=== PATIENT | female | born 1970 | race Caucasian/White ===

== ENCOUNTER 2016-06-18 18:33 | Inpatient (IN) | payer OTHER ==
--- NOTE | ~2016-06-18 | PN ---
Unit #: [id number] #: [id number] Patient: JOSE KELLOGG [id number] [facility] [address] [place] [address] [id number] MR#: [id number] NAME: JOSE KELLOGG ROOM: 66 Age: 45 Sex: F Admission Date: 06/18/2016 : 1970 Attending Physician: Ammon Ruiz M.D. Admitting Physician: Ammon Ruiz M.D. Primary Care Physician: Kusum Segundo PROGRESS NOTES DATE 06/22/2016 DISCUSSION The patient continues to endorse positive suicidal ideation and depressed mood. I have spoken with the patient today regarding realistic expectations of inpatient care as well as latency of onset of her antidepressant medication. She is continuing however to endorse positive suicidal ideation (1)____ ongoing inpatient treatment. Dictated by... Ammon Ruiz M.D. CB/amara TD: 06/23/2016 01:43 JOB #: [id number] [facility] PROGRESS NOTES Page 1 of 1 X Ammon Ruiz MD X PROGRESS NOTE
--- NOTE | ~2016-06-18 | PN ---
Unit #: [id number] #: [id number] Patient: JOSE KELLOGG [id number] [facility] [address] [place] [address] [id number] MR#: [id number] NAME: JOSE KELLOGG ROOM: [facility] Age: 45 Sex: F Admission Date: 06/18/2016 : 1970 Attending Physician: Ammon Ruiz M.D. Admitting Physician: Ammon Ruiz M.D. Primary Care Physician: Kusum Segundo PROGRESS NOTES DATE 06/28/2016 DISCUSSION The patient has tolerated initiation of Abilify without complaints. She remains quite dysphoric but is less seclusive to room. She continues to endorse positive suicidal ideation with a plan to overdose or cut her wrist. She remains on suicidal precautions. Dictated by... Ammon Ruiz M.D. CB/amara TD: 06/29/2016 01:47 JOB #: [id number] [facility] PROGRESS NOTES Page 1 of 1 X Ammon Ruiz MD X PROGRESS NOTE
--- NOTE | ~2016-06-18 | PN ---
Unit #: [id number] #: [id number] Patient: JOSE KELLOGG [id number] [facility] [address] [place] [address] [id number] MR#: [id number] NAME: JOSE KELLOGG ROOM: 66 Age: 45 Sex: F Admission Date: 06/18/2016 : 1970 Attending Physician: Ammon Ruiz M.D. Admitting Physician: Ammon Ruiz M.D. Primary Care Physician: Kusum Segundo PROGRESS NOTES DATE 06/25/2016 DISCUSSION The patient states today that she continues to experience positive suicidal thinking. She is angry today that her large portions have not been provided and states that this is an example of how "I make little things into big things." This is actually quite insightful for the patient and is a sign of some progress. She does, however, continue to endorse positive suicidal ideation and states that she is unsafe outside the hospital at this point. Dictated by... Ammon Ruiz M.D. CB/siddhartha TD: 06/25/2016 13:15 JOB #: [id number] [facility] PROGRESS NOTES Page 1 of 1 X Ammon Ruiz MD X PROGRESS NOTE
--- NOTE | ~2016-06-18 | PN ---
Unit #: [id number] #: [id number] Patient: JOSE KELLOGG [id number] [facility] [address] [place] [address] [id number] I MR#: [id number] NAME: JOSE KELLOGG ROOM: 66 Age: 45 Sex: F Admission Date: 06/18/2016 : 1970 Attending Physician: Ammon Ruiz M.D. Admitting Physician: Ammon Ruiz M.D. Primary Care Physician: Kusum Segundo PROGRESS NOTES DATE 06/23/2016 DISCUSSION The patient continues to complain of dysphoric mood and suicidal ideation, but she states she is doing "a little better." I have spoken today with the patient regarding realistic expectations of inpatient care, and I have also spoken with her regarding possible participation in the intensive outpatient program on his discharge. Dictated by... Ammon Ruiz M.D. CB/bzg TD: 06/23/2016 12:41 JOB #: [id number] [facility] PROGRESS NOTES Page 1 of 1 X Ammon Ruiz MD X PROGRESS NOTE
--- NOTE | ~2016-06-18 | HP ---
Unit #: [id number] #: [id number] Patient: JOSE KELLOGG [id number] [place] [address] [id number] I MR#: [id number] NAME: JOSE KELLOGG ROOM: P266 Age: 45 Sex: F Admission Date: 06/18/2016 : 1970 Attending Physician: Ammon Ruiz M.D. Admitting Physician: Ammon Ruiz M.D. Primary Care Physician: David Tran M.D. HISTORY AND PHYSICAL HISTORY OF PRESENT ILLNESS Jose is a 45-year-old female admitted on 06/18/[address] [place] [address] for suicidal ideation, depression, and anxiety. PAST MEDICAL HISTORY Asthma and COPD, history of herpes, fibromyalgia, obesity, GERD, history of migraines, degenerative disk disease. PAST SURGICAL HISTORY History of cholecystectomy and right foot bunionectomy. SOCIAL HISTORY Smokes less than half pack of cigarettes daily. Denies alcohol or illegal drug use. She is currently single and living with her mother and her boyfriend. FAMILY HISTORY Noncontributory. REVIEW OF SYSTEMS CONSTITUTIONAL: No fever or chills. HEENT: Denies any sore throat, ear pain or runny nose. CARDIOVASCULAR: Denies chest pain, irregular heart rhythm or palpitations. CHEST: Denies shortness of breath or cough. No hemoptysis. GASTROINTESTINAL: Denies nausea, vomiting, diarrhea or chronic constipation. ENDOCRINE: Denies history of increased thirst or urination. No recent significant weight loss or gain. GENITOURINARY: Denies dysuria, frequency, or hematuria. SKIN: Denies any rashes. HEMATOLOGIC: Denies history of increased bleeding or bruising. MUSCULOSKELETAL: Denies any hot, swollen joints. No generalized muscle pain. NEUROLOGIC: Denies problems with vision or speech. No frequent, severe headaches. No numbness, tingling or weakness in any extremities. Denies loss of bladder or bowel control. CURRENT MEDICATIONS Valtrex, Flexeril, Imitrex, Lortab, Minipress, Flonase, Tessalon Pearls, Protonix, Ambien, and Proventil. ALLERGIES To dairy, penicillin, amoxicillin, BuSpar, codeine, Haldol, Paxil, Lyrica, Unit #: [id number] #: [id number] Patient: JOSE KELLOGG Seroquel, Zoloft, Geodon, shell fish, and trazodone. PHYSICAL EXAMINATION GENERAL: Alert, oriented, no acute distress. VITAL SIGNS: Blood pressure 131/88, heart rate 74, respirations 20, and temperature 97.9. HEIGHT: 5 feet 4. WEIGHT: 240 pounds. SKIN: Warm, dry. No rashes or lesions, track diehl, cuts, etc. HEENT: Normocephalic. TMs not viewed. Oronasal passages clear. Conjunctivae clear. PERRLA. EOM is intact. NECK: No lymphadenopathy or thyromegaly. HEART: Regular rate and rhythm. No murmur, gallop, or rub. LUNGS: Clear to auscultation bilaterally. ABDOMEN: Soft, nontender without palpable masses or hepatosplenomegaly. : Not assessed. EXTREMITIES: No evidence of cyanosis, clubbing, or edema. Moves all extremities independently without obvious deficit. NEUROLOGICAL: Grossly within normal limits. Cranial Nerves: II: Visual hankins are intact. III, IV AND : Extraocular movements are intact. Pupils are equal, round and reactive to light. V: Facial sensation is grossly normal. VII: Facial movements and expression are normal. VIII: Auditory acuity grossly intact. IX, X: Uvula is midline. Phonation is normal. XI: Patient shrugs shoulders and turns head normally. XII: Tongue protrudes in the midline. Sensory and Motor Function: Sensory and motor sensation is grossly normal. Motor: moves all extremities well. Coordination: Gait is normal. Deep Tendon Reflexes: Intact. IMPRESSION 1. Psychiatric admission. 2. Obesity. 3. Fibromyalgia. 4. Chronic obstructive pulmonary disease. 5. Gastroesophageal reflux disease. 6. History of migraines. 7. Degenerative disk disease. 8. History of herpes. RECOMMENDATIONS PSYCHIATRIC: Per psychiatrist. MEDICAL: No contraindication to participate in this facility's activities. MEDICAL PROGNOSIS Good. MEDICAL CONDITION Stable. Dictated by... Wilfredo Campbell Unit #: [id number] #: [id number] Patient: JOSE KELLOGG TD: 06/20/2016 06:49 JOB #: [id number] HISTORY AND PHYSICAL Page 1 of 1 X ANGIE FINN APRN X HISTORY AND PHYSICAL
--- NOTE | ~2016-06-18 | PN ---
Unit #: [id number] #: [id number] Patient: JOSE KELLOGG [id number] [facility] [address] [place] [address] [id number] I MR#: [id number] NAME: JOSE KELLOGG ROOM: 66 Age: 45 Sex: F Admission Date: 06/18/2016 : 1970 Attending Physician: Ammon Ruiz M.D. Admitting Physician: Ammon Ruiz M.D. Primary Care Physician: Kusum Segundo PROGRESS NOTES DATE 06/21/2016 DISCUSSION The patient continues to complain of dysphoric mood, and positive suicidal ideation. She is acting within the therapeutic milieu and compliant with medications and langley routine. We continue current treatment. Dictated by... Ammon Ruiz M.D. CB/shanique TD: 06/22/2016 07:21 JOB #: [id number] [facility] PROGRESS NOTES Page 1 of 1 X Ammon Ruiz MD X PROGRESS NOTE
--- NOTE | ~2016-06-18 | DS ---
Unit #: [id number] #: [id number] Patient: JOSE KELLOGG [id number] [place] [address] [id number] MR#: [id number] NAME: JOSE KELLOGG ROOM: P256 Age: 45 Sex: F Admission Date: 06/18/2016 : 1970 Discharge Date: 07/03/2016 Attending Physician: Ammon Ruiz M.D. Primary Care Physician: David Tran M.D. DISCHARGE SUMMARY REASON FOR ADMISSION The patient is a 45-year-old white female, admitted with worsening depression and suicidal ideation. HOSPITAL COURSE The patient was admitted to the [facility] unit, placed on suicide precautions. The patient had in the past done well with medication washout. However with recurrence of depression and psychotic symptoms as well as severe anxiety, it was the feeling of this physician that re-initiation of conservative pharmacotherapy would be warranted and the patient was however firmly confronted regarding her failure in the past to comply with prescribed outpatient treatment and the importance of this was stressed to the patient. The patient was begun on Celexa 20 mg daily and restarted on Neurontin 300 mg t.i.d. On 06/27/2016, the patient reported that she was hearing voices and low-dose Abilify 2 mg daily was added. From that point forward, the patient showed slow, but steady improvement. By 07/03/2016, she was denying suicidal ideation. She at least gave [place] approval to a plan with participation in the intensive outpatient program though this physician remains convinced that she will probably not comply with that recommendation. 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 DISPOSITION ON DISCHARGE The patient is discharged on the following medications: Valtrex 500 mg b.i.d. for HSV-2, Flexeril 5 mg b.i.d. for muscle relaxation, Imitrex 50 mg b.i.d. p.r.n. headache, Lortab 10/325 one tablet q.6 hours p.r.n. headache, Minipress 4 mg at bedtime for nightmares, Flonase one spray b.i.d. for environmental allergies, Tessalon Perles 100 mg t.i.d. for cough, Protonix 40 mg daily for GERD, Ambien 10 mg at h.s. p.r.n. insomnia, Proventil HFA one puff daily for shortness of air, Neurontin 300 mg t.i.d. for anxiety, Celexa 20 mg daily for depression, Abilify 2 mg daily for psychosis. DISCHARGE INSTRUCTIONS No dietary or physical restrictions were placed on the patient at the time of discharge. FOLLOWUP As noted previously, it is recommended that the patient is to follow up in Unit #: [id number] #: [id number] Patient: JOSE KELLOGG the intensive outpatient program provided by this facility and through the auspices of critical [facility] mental health resources. PROGNOSIS Considered fair. Dictated by... Ammon Ruiz M.D. CB/david TD: 07/04/2016 03:32 JOB #: [id number] DISCHARGE SUMMARY Page 1 of 1 X Ammon Ruiz MD X DISCHARGE SUMMARY
--- NOTE | ~2016-06-18 | PA ---
Unit #: [id number] #: [id number] Patient: JOSE KELLOGG [id number] [place] [address] [id number] I MR#: [id number] NAME: JOSE KELLOGG ROOM: P266 Age: 45 Sex: F Admission Date: 06/18/2016 : 1970 Date of Assessment: 06/19/2016 Attending Physician: Ammon Ruiz M.D. Admitting Physician: Ammon Ruiz M.D. Primary Care Physician: David Tran M.D. PSYCHIATRIC ASSESSMENT IDENTIFYING INFORMATION The patient is a 45-year-old white female admitted to the [address] [place] [address] Unit reporting recurrent depression, anxiety, and suicidal ideation. CHIEF COMPLAINT None given. INFORMANT(S) Patient, reliability is good. HISTORY OF PRESENT ILLNESS The patient is a 45-year-old white female well known to this physician from multiple previous admissions to this facility. She has admitted reporting increasing depression related to grief over the recent of her nephew's girlfriend from a drug overdose. Because of this, the patient's mother is now raising the 5-month-old child of the decreased woman. This has caused increasing stress. Since her discharge from this facility, the patient has not followed up with an outpatient psychiatrist and is taking only Minipress at this point. She is not on an antidepressant medication. The patient continues to complain of severe anxiety and depression during today's interview and continues to endorse positive suicidal ideation with plan to overdose. For more complete history of present illness, please refer to previously dictated notes. PAST PSYCHIATRIC HISTORY Reviewed, no changes. PAST MEDICAL HISTORY Reviewed, no changes. MEDICATIONS The patient's current medications include Valtrex, Flexeril, Imitrex, Lortab, Minipress, Tessalon Pearls, Protonix, Ambien, Proventil HFA. ALLERGIES Dairy, penicillin, and amoxicillin, BuSpar, codeine, Haldol, Paxil, Lyrica, Seroquel, Zoloft, Geodon, shellfish, and trazodone. FAMILY HISTORY Reviewed, no changes. SOCIAL HISTORY Reviewed, no changes. Unit #: [id number] #: [id number] Patient: JOSE KELLOGG MENTAL STATUS EXAMINATION Examination at this time reveals the patient to be an obese disheveled white female appearing stated age. She is in no apparent physical distress at the time of examination. She is awake, alert, and oriented in all spheres. Her mood is dysphoric, her affect blunted. Speech is generally well-coherent. There are no gross deficits in memory or cognition noted. Intelligence is judged to be in the average range based on fund of knowledge. The patient is cooperative throughout the interview. She continues to endorse positive suicidal ideation during today's interview. She denies homicidal ideation. She denies any psychotic symptoms. Her judgment and insight appear to be intact. ASSETS AND LIABILITIES The patient's assets are to be assessed. Liabilities: Chronicity of illness. DIAGNOSTIC IMPRESSION 1. Major depressive disorder, recurrent, moderate. 2. Dependent personality disorder. 3. HSV. 4. Migraine headache. 5. Gastroesophageal reflux disease. 6. Asthma. TREATMENT PLAN The patient remains hospitalized for safety and stabilization. We will continue previously prescribed medications. I will add Neurontin 300 mg 3 times daily. We will address the patient's anxiety as per her request. She reports this medication has been effective for her in the past. I will also begin the patient on Celexa 20 mg daily in hopes of addressing her depressive symptoms. The importance of consistent compliance with outpatient followup is discussed with the patient certainly today. ESTIMATED LENGTH OF STAY 7 to 10 days. Dictated by... Ammon Ruiz M.D. Ramone TD: 06/19/2016 12:47 JOB #: [id number] PSYCHIATRIC ASSESSMENT Page 1 of 1 X Ammon Ruiz MD X PSYCHIATRIC ASSESSMENT
--- NOTE | ~2016-06-18 | PN ---
Unit #: [id number] #: [id number] Patient: JOSE KELLOGG [id number] [facility] [address] [place] [address] [id number] MR#: [id number] NAME: JOSE KELLOGG ROOM: 66 Age: 45 Sex: F Admission Date: 06/18/2016 : 1970 Attending Physician: Ammon Ruiz M.D. Admitting Physician: Ammon Ruiz M.D. Primary Care Physician: Kusum Segundo PROGRESS NOTES DATE 06/27/2016 DISCUSSION The patient remains dysphoric and flat. She is now reporting positive auditory hallucinations. We will add Abilify 2 mg daily in hopes of addressing the patient's psychotic symptoms and in hopes of augmenting her prescribed antidepressant medication. Dictated by... Ammon Ruiz M.D. CB/ravi TD: 06/27/2016 11:52 JOB #: [id number] [facility] PROGRESS NOTES Page 1 of 1 X Ammon Ruiz MD X PROGRESS NOTE
--- NOTE | ~2016-06-18 | PN ---
Unit #: [id number] #: [id number] Patient: JOSE KELLOGG [id number] [facility] [address] [place] [address] [id number] MR#: [id number] NAME: JOSE KELLOGG ROOM: 66 Age: 45 Sex: F Admission Date: 06/18/2016 : 1970 Attending Physician: Ammon Ruiz M.D. Admitting Physician: Ammon Ruiz M.D. Primary Care Physician: Kusum Segundo PROGRESS NOTES DATE 06/26/2016 DISCUSSION The patient appears much more dysphoric today and is reporting significant increase in suicidal thinking with plan to overdose if discharged. At this point, her trial of citalopram is 1 week old and upward titration of that medication would at this point be foolhardy. We must allow the medication have an opportunity to work at its current dose rather than needlessly increasing the dose of medication simply to "feel as though we are doing something." The patient continues active participation in programming, and suicide precautions remain in place. Dictated by... Ammon Ruiz M.D. CB/ravi TD: 06/26/2016 14:36 JOB #: [id number] [facility] PROGRESS NOTES Page 1 of 1 X Ammon Ruiz MD X PROGRESS NOTE
--- NOTE | ~2016-06-18 | PN ---
Unit #: [id number] #: [id number] Patient: JOSE KELLOGG [id number] [facility] [address] [place] [address] [id number] I MR#: [id number] NAME: JOSE KELLOGG ROOM: P256 Age: 45 Sex: F Admission Date: 06/18/2016 : 1970 Attending Physician: Ammon Ruiz M.D. Admitting Physician: Ammon Ruiz M.D. Primary Care Physician: Kusum Segundo PROGRESS NOTES DATE 07/01/2016 DISCUSSION The patient remains dysphoric and flat. She has begun self-mutilatory acts by scratching at herself using her nails. She is starting on VTS precautions, and should this behavior continue I will have to consider room lockout. She continues to endorse positive suicidal ideation. Dictated by... Ammon Ruiz M.D. CB/bzg TD: 07/01/2016 13:07 JOB #: [id number] [facility] PROGRESS NOTES Page 1 of 1 X Ammon Ruiz MD X PROGRESS NOTE
--- NOTE | ~2016-06-18 | PN ---
Unit #: [id number] #: [id number] Patient: JOSE KELLOGG [id number] [facility] [address] [place] [address] [id number] I MR#: [id number] NAME: JOSE KELLOGG ROOM: 66 Age: 45 Sex: F Admission Date: 06/18/2016 : 1970 Attending Physician: Ammon Ruiz M.D. Admitting Physician: Ammon Ruiz M.D. Primary Care Physician: Kusum Segundo PROGRESS NOTES DATE 06/29/2016 DISCUSSION The patient continues to complain of severely depressed mood and poor sleep. We are cautiously restarting medications though it is worth noting that at one point during a bed washout, the patient's condition seem to have improved immeasurably thus, at this point, her medication regimen remains a fairly conservative one. I will order VTS precautions given the patient's complaints of worsening suicidal ideation. Dictated by... Ammon Ruiz M.D. CB/shanique TD: 06/29/2016 13:01 JOB #: [id number] [facility] PROGRESS NOTES Page 1 of 1 X Ammon Ruiz MD X PROGRESS NOTE
--- NOTE | ~2016-06-18 | PN ---
Unit #: [id number] #: [id number] Patient: JOSE KELLOGG [id number] [facility] [address] [place] [address] [id number] MR#: [id number] NAME: JOSE KELLOGG ROOM: 66 Age: 45 Sex: F Admission Date: 06/18/2016 : 1970 Attending Physician: Ammon Ruiz M.D. Admitting Physician: Ammon Ruiz M.D. Primary Care Physician: Kusum Segundo PROGRESS NOTES DATE 06/24/2016 DISCUSSION The patient is confused and remains dysphoric, flat, and continues to endorse positive suicidal ideation. She reports increased anxiety after an event on the unit in which the patient "went off." I have again spoken with the patient regarding realistic expectations of inpatient care and have once again spoken to her encouragingly about potential participation in the intensive outpatient program. Dictated by... Ammon Ruiz M.D. CB/ravi TD: 06/24/2016 12:50 JOB #: [id number] [facility] PROGRESS NOTES Page 1 of 1 X Ammon Ruiz MD X PROGRESS NOTE
--- NOTE | ~2016-06-18 | PN ---
Unit #: [id number] #: [id number] Patient: JOSE KELLOGG [id number] [facility] [address] [place] [address] [id number] I MR#: [id number] NAME: JOSE KELLOGG ROOM: P256 Age: 45 Sex: F Admission Date: 06/18/2016 : 1970 Attending Physician: Ammon Ruiz M.D. Admitting Physician: Ammon Ruiz M.D. Primary Care Physician: Kusum Segundo PROGRESS NOTES DATE 06/30/2016 DISCUSSION The patient is dysphoric today and continuing to complain of poor sleep. I have explained to her that we can really make no further changes with her sleep medication regimen. I have also gently confronted her regarding her failure to attend non-unit activity during today's programming. The patient is apologetic regarding this. She continues to endorse positive suicidal ideation but is beginning to report some future orientation regarding a potential discharge date though in the past the patient has tended to sabotage these with some regularity. Dictated by... Ammon Ruiz M.D. RANDELL/carmella TD: 06/30/2016 15:32 JOB #: [id number] [facility] PROGRESS NOTES Page 1 of 1 X Ammon Ruiz MD X PROGRESS NOTE
--- NOTE | ~2016-06-18 | PN ---
Unit #: [id number] #: [id number] Patient: JOSE KELLOGG [id number] [facility] [address] [place] [address] [id number] I MR#: [id number] NAME: JOSE KELLOGG ROOM: 66 Age: 45 Sex: F Admission Date: 06/18/2016 : 1970 Attending Physician: Ammon Ruiz M.D. Admitting Physician: Ammon Ruiz M.D. Primary Care Physician: Kusum Segundo PROGRESS NOTES DATE 06/20/2016 DISCUSSION The patient remains dysphoric and flat and continues to endorse positive suicidal ideation. She has tolerated re-initiation of citalopram and is actively within the therapeutic milieu. Dictated by... Ammon Ruiz M.D. CB/carmella TD: 06/20/2016 15:49 JOB #: [id number] [facility] PROGRESS NOTES Page 1 of 1 X Ammon Ruiz MD X PROGRESS NOTE
--- NOTE | ~2016-06-18 | PN ---
Unit #: [id number] #: [id number] Patient: JOSE KELLOGG [id number] [facility] [address] [place] [address] [id number] I MR#: [id number] NAME: JOSE KELLOGG ROOM: P256 Age: 45 Sex: F Admission Date: 06/18/2016 : 1970 Attending Physician: Ammon Ruiz M.D. Admitting Physician: Ammon Ruiz M.D. Primary Care Physician: Kusum Segundo PROGRESS NOTES DATE 07/02/2016 DISCUSSION The patient complains of increased anxiety today but does report some reduction in suicidal ideation. I have spoken today with the patient regarding my wish to minimize the aggressivity of her pharmacotherapy given the fact that after previous hospitalization wherein the patient had undergone a med washout, her condition had improved almost immeasurably. I am therefore keeping the patient's medication regimen as conservative as possible, and I have again spoken with the patient regarding the importance of post-discharge psychiatric followup in the intensive outpatient program. Dictated by... Ammon Ruiz M.D. CB/ravi TD: 07/02/2016 14:02 JOB #: [id number] [facility] BOSE NOTES Page 1 of 1 X Ammon Ruiz MD X PROGRESS NOTE
[~2016-06-18 18:33] MED LIST: ACETAMINOPHEN325 MG PO; ADVAIR 2501 DISK W/D PO; AL-MAG HYDROX-S30 M1 PO; AMBIEN10 MG PO; AMBIEN12.5 M1 PO; BENZONATATE PO; EFFEXOR75 M3 PO; FLEXERIL10 M1 PO; FLONASE 0.05% N16 GM; GABAPENTIN400 M2 PO; GABAPENTIN600 MG PO; HYDROCODON-ACE1 EAC5 PO; IMITREX25 MG PO; KLONOPIN0.5 MG PO; LASIX PO; LEXAPRO20 MG PO; LORTAB 10-3251 EACH PO; MILK OF MAGNESIA PO; MINIPRESS PO; MOTRIN600 MG PO; NEURONTIN800 MG PO; NICOTINE P1 PATCH .1 TD; NICOTINE TRANSD21 MG EXT; PANTOPRAZOLE SO40 MG PO; PROPRANOLOL HCL20 MG PO; PROTONIX PO; PROVENTIL0.83 MG/ML INH; RISPERIDONE1 MG PO; TESSALON PERLE100 M1; TYLENOL325 M1 PO; VALTREX500 MG PO; VISTARIL50 MG PO; ZANTAC300 MG PO
[2016-06-19 09:42] LABS: BASOPHIL# 0.1 X10e3 (0-0.3); BASOPHIL% 0.7 % (0-2.5); EOSINOPHIL# 0.5 X10e3 (0-0.7); EOSINOPHIL% 4.2 % (0.0-7.0); HEMATOCRIT 40.9 % (35.0-45.0); HEMOGLOBIN 13.5 gm/dL (12.0-16.0); LYMPHOCYTE# 3.4 X10e3 (1.0-3.5); LYMPHOCYTE% 31.9 % (17.0-45.0); MEAN CELL VOLUME 94.3 FL (83-96); MEAN CORPUSCULAR HEMOGLOBIN 31.1 PG (28-34); MEAN PLATELET VOLUME 9.8 FL (6.5-11.5); MONOCYTE# 0.9 X10e3 (0-1.0); MONOCYTE% 8.5 % (3.0-12.0); NEUTROPHIL# 5.9 X10e3 (1.5-7.1); NEUTROPHIL% 54.7 % (40-75); PLATELET COUNT 305 X10e3 (140-420); RED BLOOD COUNT 4.34 X10e (3.90-5.30); RED CELL DISTRIBUTION WIDTH 13.6 % (11.0-15.5); WHITE BLOOD COUNT 10.8 X10e3 (4.0-10.5)
[2016-06-19 09:44] LABS: DIFF IND NO
[2016-06-19 10:04] LABS: ALBUMIN SERUM 3.9 g/dL (3.5-5.0); BILIRUBIN,TOTAL 0.8 mg/dL (0.2-2.0); BUN/CREATININE RATIO 13.75; CALCIUM SERUM 9.3 mg/dL (8.4-10.2); CREATININE SERUM 0.8 mg/dL (0.6-1.4); GLOM FILT RATE Estimated 89.1 mL/min (>60); POTASSIUM 4.3 mmol/L (3.5-5.1); PROTEIN TOTAL SERUM 6.7 g/dL (6.0-8.3)
[2016-06-19 13:02] LABS: URINE APPEARANCE CLEAR; URINE BILIRUBIN NEG (NEG); URINE BLOOD NEG (NEG); URINE COLOR YELLOW; URINE GLUCOSE NEG (NEG); URINE KETONE NEG (NEG); URINE LEUKOCYTE ESTERASE NEG (NEG); URINE NITRATE NEG (NEG); URINE PH 5.5 (5-8); URINE PROTEIN NEG (NEG); URINE SPECIFIC GRAVITY 1.007 (1.003-1.035); URINE UROBILINOGEN 0.2 MG/DL (NEG)
== END 2016-07-03 16:15 | disposition home or self-care (01) | DRG 885 ==
LOC: P2L 21:04
PROVIDERS: Specialist
DX: F33.1 Major depressive disorder, recurrent, moderate (principal); R45.851 Suicidal ideations; F60.7 Dependent personality disorder; G43.909 Migraine, unspecified, not intractable, without status migrainosus; K21.9 Gastro-esophageal reflux disease without esophagitis; J45.909 Unspecified asthma, uncomplicated; B00.9 Herpesviral infection, unspecified; M79.7 Fibromyalgia; E66.9 Obesity, unspecified; F17.200 Nicotine dependence, unspecified, uncomplicated; Z88.0 Allergy status to penicillin; Z91.013 Allergy to seafood; F60.3 Borderline personality disorder; G89.29 Other chronic pain
CPT/HCPCS: 80053; 81003; 85025

== ENCOUNTER 2016-07-29 14:04 | Inpatient (IN) | payer OTHER, MEDICARE ==
--- NOTE | ~2016-07-29 | HP ---
Unit #: [id number] #: [id number] Patient: JOSE KELLOGG [id number] [place] [address] [id number] I MR#: [id number] NAME: JOSE KELLOGG ROOM: P131 Age: 45 Sex: F Admission Date: 07/29/2016 : 1970 Attending Physician: Ammon Ruiz M.D. Admitting Physician: Ammon Ruiz M.D. Primary Care Physician: David Tran M.D. HISTORY AND PHYSICAL HISTORY OF PRESENT ILLNESS Jose is a 45 year old admitted to [address] [place] [address] with depression. PAST MEDICAL HISTORY 1. Obesity. 2. Fibromyalgia. 3. COPD. 4. GERD. 5. History of migraines. 6. Degenerative disc disease. a. Chronic pain. 7. History of ECT. 8. History of herpes simplex. PAST SURGICAL HISTORY Cholecystectomy. ALLERGIES BuSpar, Zoloft, Paxil, Seroquel, penicillin, Haldol, codeine, trazodone, Geodon, Lyrica, shellfish. SOCIAL HISTORY Smokes 1 pack per day. Denies alcohol and illicit drug use. FAMILY HISTORY Medically noncontributory. REVIEW OF SYSTEMS She does not answer questions appropriately. There are no reports of nausea, vomiting or diarrhea. She has had no cough or increased temperature. CURRENT MEDICATIONS 1. Abilify 400 mg IM q. 30 days. 2. Celexa 20 mg daily. 3. Desyrel 100 mg q.h.s. p.r.n. 4. Cogentin 1 mg q. 6 hours p.r.n. 5. Nicotine patch 14 mg daily. 6. Klonopin p.r.n. 7. Imitrex p.r.n. 8. Minipress 4 mg q.h.s. 9. Flonase nasal spray b.i.d. 10. Flexeril 5 mg b.i.d. Unit #: [id number] #: [id number] Patient: JOSE KELLOGG 11. Valtrex 500 mg b.i.d. 12. [place] 10/325 one tab q. 6 hours p.r.n. 13. Ambien 10 mg q.h.s. p.r.n. 14. Proventil inhaler p.r.n. 15. Milk of Magnesia p.r.n. 16. Maalox p.r.n. 17. Tylenol p.r.n. PHYSICAL EXAMINATION GENERAL: Alert, obese, in no apparent distress. VITAL SIGNS: Blood pressure 110/64, heart rate 80, respirations 16, temperature 98.6. WEIGHT: 240. HEIGHT: 5 feet 4 inches. SKIN: Warm and dry without rash or lesion. HEENT: Normocephalic. TMs not viewed. Oral and nasal passages clear. Conjunctivae clear. PERRLA. EOMs intact. NECK: Supple without lymphadenopathy or thyromegaly. HEART: Regular rate and rhythm without murmur. LUNGS: Clear. ABDOMEN: Soft, nontender. : Not done. EXTREMITIES: No evidence of cyanosis, clubbing or edema. Moves all without focal deficit. NEUROLOGICAL: Unable to complete extended exam. She does move all extremities without focal deficit. Hand mixing machine attendant is equal and gait is normal. IMPRESSION Psychiatric admission. RECOMMENDATIONS PSYCHIATRIC: Per psychiatrist. MEDICAL: See no contraindication to participate in facility's activities. MEDICAL PROGNOSIS Good. MEDICAL CONDITION Stable. Dictated by... Kami Luo PRockyARocky-Barbara. for Kusum Meraz/carmella TD: 07/30/2016 15:27 JOB #: [id number] Unit #: [id number] #: [id number] Patient: JOSE KELLOGG HISTORY AND PHYSICAL Page 1 of 1 X Kami Luo X HISTORY AND PHYSICAL
--- NOTE | ~2016-07-29 | DS ---
Unit #: [id number] #: [id number] Patient: JOSE KELLOGG [id number] [place] [address] [id number] MR#: [id number] NAME: JOSE KELLOGG ROOM: P125 Age: 45 Sex: F Admission Date: 07/29/2016 : 1970 Discharge Date: 08/10/2016 Attending Physician: Ammon Ruiz M.D. Primary Care Physician: David Tran M.D. DISCHARGE SUMMARY REASON FOR ADMISSION The patient is a 45-year-old white female, admitted with recurrent suicidal ideation. HOSPITAL COURSE The patient was admitted to the [address] [place] [address] unit, but eventually transferred to the [address] [place] [address] unit when room lockout became necessary. The patient's stay in the hospital was a fairly typical one. Dr. Lazaro resumed care of the patient in her physician's absence and did increase her citalopram to 40 mg daily. It was unclear when the patient had last received for Abilify Maintena shot and this medication was not re-initiated. It was not the feeling of this physician that the patient has a schizophrenic illness or one that would be specifically responsive to Abilify Maintena and it is worth noting that this physician's extensive history of treatment in this patient. She seemed to do the best when "washed out" of all medications. It is therefore the recommendation of this physician that in future treatment medications be minimized as the patient's primary pathology is characterologic, mainly based on her dependent and borderline personality disorder. In any case, the patient was felt to be at or near her psychiatric baseline. On 08/10/2016, she requested discharge on that date and it was ordered. 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 DISPOSITION ON DISCHARGE The patient is discharged on the following medications: Celexa 40 mg daily for depression, Neurontin 400 mg t.i.d. for anxiety, Abilify Maintena 400 mg monthly for mood stabilization, Desyrel 100 mg at bedtime p.r.n. insomnia, Cogentin 1 mg q.6 hours p.r.n. stiffness, Protonix 40 mg daily for GERD, Proventil HFA one puff once daily for shortness of air, Minipress 4 mg at bedtime for nightmares, Ambien 10 mg at h.s. p.r.n. insomnia, Valtrex 500 mg b.i.d. for HSV 2, Flexeril 5 mg b.i.d. for muscle relaxation, Lortab 10/325 one tablet q.6 hours p.r.n. pain, Flonase 1 spray b.i.d. for environmental allergies, Tessalon Perles 100 mg t.i.d. for cough, Imitrex 50 mg b.i.d. p.r.n. migraine headache, and Klonopin 1 mg t.i.d. p.r.n. anxiety. DISCHARGE INSTRUCTIONS No dietary or physical restrictions were placed on the patient at the time Unit #: [id number] #: [id number] Patient: JOSE KELLOGG of discharge. FOLLOWUP Followup will take place through the auspices of community mental health resources given the patient's history of poor compliance with prescribed outpatient followup. PROGNOSIS Her prognosis remains guarded. Dictated by... Ammon Ruiz M.D. CB/david TD: 08/10/2016 13:10 JOB #: [id number] DISCHARGE SUMMARY Page 1 of 1 X Ammon Ruiz MD X DISCHARGE SUMMARY
--- NOTE | ~2016-07-29 | PN ---
Unit #: [id number] #: [id number] Patient: JOSE KELLOGG [id number] [facility] [address] [place] [address] [id number] I MR#: [id number] NAME: JOSE KELLOGG ROOM: P125 Age: 45 Sex: F Admission Date: 07/29/2016 : 1970 Attending Physician: Ammon Ruiz M.D. Admitting Physician: Ammon Ruiz M.D. Primary Care Physician: David Tran M.D. [facility] PROGRESS NOTES DATE August 08, 2016 DISCUSSION Upon today's assessment, this patient was found sitting in the day room; however, she was not interacting with peers or staff at this time. Her hygiene still remains poor. She reports that she continues to have suicidal ideations with a plan to hang herself and states that she is "okay." She reports auditory hallucinations, explains them as voices that are asking her to kill herself. She states; however, though, she begins to feel unsafe she will approach the nurses' station and speak with staff at that time. Her affect remains flat and she makes little eye contact at this time. We will continue to monitor her with suicidal precautions and every fifteen minute checks for safety as well as room lockout during the day. Dictated by... Wilfredo Marshall/shanique TD: 08/12/2016 05:44 JOB #: [id number] [facility] PROGRESS NOTES Page 1 of 1 X Leslie Harrison PROGRESS NOTE
--- NOTE | ~2016-07-29 | PN ---
Unit #: [id number] #: [id number] Patient: JOSE KELLOGG [id number] [facility] [address] [place] [address] [id number] Kavon MR#: [id number] NAME: JSOE KELLOGG ROOM: [facility] Age: 45 Sex: F Admission Date: 07/29/2016 : 1970 Attending Physician: Ammon Ruiz M.D. Admitting Physician: Ammon Ruiz M.D. Primary Care Physician: Kusum Segundo PROGRESS NOTES DATE 08/09/2016 DISCUSSION Not surprisingly the patient remains hospitalized and is now on IV precautions. This is a typical hospital course for the patient. She is now reporting no reduction in suicidal ideation and I will at this point discontinue her IV precautions in anticipation of possible a.m. discharge. Dictated by... Ammon Ruiz M.D. CB/amara TD: 08/09/2016 23:13 JOB #: [id number] [facility] PROGRESS NOTES Page 1 of 1 X Ammon Ruiz MD X PROGRESS NOTE
--- NOTE | ~2016-07-29 | PN ---
Unit #: [id number] #: [id number] Patient: JOSE KELLOGG [id number] [facility] [address] [place] [address] [id number] I MR#: [id number] NAME: JOSE KELLOGG ROOM: P125 Age: 45 Sex: F Admission Date: 07/29/2016 : 1970 Attending Physician: Ammon Ruiz M.D. Admitting Physician: Ammon Ruiz M.D. Primary Care Physician: Kusum Segundo PROGRESS NOTES DATE OF SERVICE 08/03/2016 DISCUSSION Jose is seen today for Dr. Ruiz's absence. She continues to be dysphoric and downcast and appears somewhat watchful and paranoid. She is mildly disheveled in appearance. She is alert and fully oriented. Her memory and concentration are fair. Her thought processes are stilted and concrete. She complains of suicidal ideation. ASSESSMENT Schizoaffective disorder, major depression. PLAN We will increase citalopram and continue room lockout. Dictated by... Fabio Lazaro M.D. VALDO/amara TD: 08/08/2016 23:11 JOB #: [id number] [facility] PROGRESS NOTES Page 1 of 1 X Fabio Lazaro MD PROGRESS NOTE
--- NOTE | ~2016-07-29 | PA ---
Unit #: [id number] #: [id number] Patient: JOSE KELLOGG [id number] [facility] [address] [place] [address] [id number] I MR#: [id number] NAME: JOSE KELLOGG ROOM: P131 Age: 45 Sex: F Admission Date: 07/29/2016 : 1970 Date of Assessment: 07/30/2016 Attending Physician: Ammon Ruiz M.D. Admitting Physician: Ammon Ruiz M.D. Primary Care Physician: David Tran M.D. PSYCHIATRIC ASSESSMENT IDENTIFYING INFORMATION The patient is a 45-year-old white female admitted in transfer from [facility] where she had presented voicing positive suicidal ideation with plan to hang herself. CHIEF COMPLAINT "I got into a fight with my mother." INFORMANT Patient, reliability is fair. HISTORY OF PRESENT ILLNESS The patient is a 45-year-old white female well known to this physician from multiple previous admissions to this facility. She was last discharged from this facility on 07/03/2016. The patient reports that she has been sporadically compliant with medications. At the time of her last discharge, the patient was prescribed Abilify, Celexa, and Ambien as well as Minipress for nightmares. The patient reports that she and her mother had quarreled, leading her to have thoughts of suicide. The patient as apparently been admitted at the [facility] recently and had been prescribed Abilify Maintena. There we are attempting to ascertain when she last received her injection of this medication. When seen today, the patient is quite dysphoric and is continuing to endorse positive suicidal ideation. For more complete history of present illness, please refer to multiple previously dictated notes. PAST PSYCHIATRIC HISTORY Reviewed, no changes. MEDICATIONS At the time of admission, the patient's list of medications included Protonix, Proventil, Neurontin, and Klonopin. ALLERGIES None reported. FAMILY HISTORY Reviewed, no changes. SOCIAL HISTORY Reviewed, no changes. MENTAL STATUS EXAMINATION Unit #: [id number] #: [id number] Patient: JOSE KELLOGG Examination at this time reveals the patient to be an obese, disheveled white female appearing her stated age. She is in no apparent physical distress at the time of examination. She is awake, alert, and oriented in all spheres. Her mood is dysphoric, her affect flat. Speech is impoverished, but generally well-coherent. There are no gross deficits in memory or cognition noted. Intelligence is judged to be in the average range based on fund of knowledge. The patient is cooperative throughout the interview. She is currently endorsing positive suicidal ideation. She denies homicidal ideation. She denies any psychotic symptoms. Her judgment and insight appear to be reasonably intact. ASSETS AND LIABILITIES The patient's assets are to be assessed. Liabilities: Poor compliance with treatment. DIAGNOSTIC IMPRESSION 1. Major depressive disorder, recurrent, moderate. 2. Mixed personality disorder with dependent borderline personality traits. 3. Asthma. 4. HSV2. TREATMENT PLAN The patient remains hospitalized for safety and stabilization. We will restart citalopram, and we will continue other previously prescribed medications. The patient's failure to participate in the intensive outpatient program is discussed at some length today. ESTIMATED LENGTH OF STAY 5 to 7 days. Dictated by... Ammon Ruiz M.D. Ramone TD: 07/30/2016 12:32 JOB #: [id number] PSYCHIATRIC ASSESSMENT Page 1 of 1 X Ammon Ruiz MD X PSYCHIATRIC ASSESSMENT
--- NOTE | ~2016-07-29 | PN ---
Unit #: [id number] #: [id number] Patient: JOSE KELLOGG [id number] [facility] [address] [place] [address] [id number] I MR#: [id number] NAME: JOSE KELLOGG ROOM: [facility]5 Age: 45 Sex: F Admission Date: 07/29/2016 : 1970 Attending Physician: Ammon Ruiz M.D. Admitting Physician: Ammon Ruiz M.D. Primary Care Physician: David Tran M.D. [facility] PROGRESS NOTES DATE 08/02/2016 DISCUSSION She was seen and evaluated on August 02, 2016. Upon today's assessment, the patient was found sitting in the milieu. She reports and has complaints of poor sleep as evidenced by frequent awakening. She reports an adequate appetite. She still endorses positive command hallucinations with some saying "kill yourself." She also reports visual hallucinations and describes those as dark figures coming out to get her and seems coming out of the television. She reports thoughts of increased paranoia and thinking that people are out to get her. She also endorses positive suicidal ideation at this time with a plan to hang herself if she can do so. At this time, she will remain on q. 15 minutes for safety, and we will continue with suicidal precautions as well as encouraged her to attend therapeutic groups and unit activities. Dictated by... MAGDA Castellano TD: 08/04/2016 10:54 JOB #: [id number] [facility] PROGRESS NOTES Page 1 of 1 X LISA MASCORRO PROGRESS NOTE
== END 2016-08-10 12:30 | DRG 885 ==
LOC: P1S 16:44
DX: F33.1 Major depressive disorder, recurrent, moderate (principal); B00.9 Herpesviral infection, unspecified; F60.3 Borderline personality disorder; J45.909 Unspecified asthma, uncomplicated; E66.9 Obesity, unspecified; M79.7 Fibromyalgia; J44.9 Chronic obstructive pulmonary disease, unspecified; K21.9 Gastro-esophageal reflux disease without esophagitis; Z90.49 Acquired absence of other specified parts of digestive tract; Z88.0 Allergy status to penicillin; Z91.013 Allergy to seafood; F17.210 Nicotine dependence, cigarettes, uncomplicated; G43.909 Migraine, unspecified, not intractable, without status migrainosus; F60.89 Other specific personality disorders

== ENCOUNTER 2016-08-13 12:00 | Inpatient (IN) | payer OTHER ==
--- NOTE | ~2016-08-13 | HP ---
Unit #: [id number] #: [id number] Patient: JOSE KELLOGG [id number] [place] [address] [id number] I MR#: [id number] NAME: JOSE KELLOGG ROOM: P266 Age: 45 Sex: F Admission Date: 08/13/2016 : 1970 Attending Physician: Ammon Ruiz M.D. Admitting Physician: Ammon Ruiz M.D. Primary Care Physician: David Tran M.D. HISTORY AND PHYSICAL Jose is a 45 year old admitted to [address] [place] [address] with depression. She was recently discharged from this facility. Patient was seen and H and P dated 07/30/16 was reviewed. This is current. No changes. Please see H and P dated 07/30/16. Dictated by... Kami Luo P.A.-C. for Kusum Meraz/carmella TD: 08/13/2016 21:27 JOB #: [id number] HISTORY AND PHYSICAL Page 1 of 1 X Kami Luo HISTORY AND PHYSICAL
--- NOTE | ~2016-08-13 | PN ---
Unit #: [id number] #: [id number] Patient: JOSE KELLOGG [id number] [facility] [address] [place] [address] [id number] I MR#: [id number] NAME: JOSE KELLOGG ROOM: P255 Age: 45 Sex: F Admission Date: 08/13/2016 : 1970 Attending Physician: Ammon Ruiz M.D. Admitting Physician: Ammon Ruiz M.D. Primary Care Physician: Kusum Segundo PROGRESS NOTES DATE 08/15/2016 DISCUSSION The patient had initially asked to leave the hospital yesterday when informed that a medication washout would take place. However, she is more agreeable to this plan today. She does request reinitiation of Neurontin stating that she takes this medication for neuropathic pain. It will be restarted. Other medications will be held at this time. Dictated by... Ammon Ruiz M.D. RANDELL/carmella TD: 08/15/2016 12:04 JOB #: [id number] [facility] PROGRESS NOTES Page 1 of 1 X Ammon Ruiz MD X PROGRESS NOTE
--- NOTE | ~2016-08-13 | PA ---
Unit #: [id number] #: [id number] Patient: JOSE KELLOGG [id number] [place] [address] [id number] MR#: [id number] NAME: JOSE KELLOGG ROOM: P255 Age: 45 Sex: F Admission Date: 08/13/2016 : 1970 Date of Assessment: 08/14/2016 Attending Physician: Ammon Ruiz M.D. Admitting Physician: Ammon Ruiz M.D. Primary Care Physician: David Tran M.D. PSYCHIATRIC ASSESSMENT IDENTIFYING INFORMATION The patient is a 45-year-old white female well-known to this physician. She was just discharged but returns voicing positive suicidal ideation and visual hallucinations. INFORMANT(S) Patient. RELIABILITY Fair. CHIEF COMPLAINT "I'm seeing things." HISTORY OF PRESENT ILLNESS The patient is a 45-year-old white female well-known to this physician from multiple previous admissions to this facility the last of which ended just 3 days prior to readmission. The patient returns reporting that she is experiencing visual hallucinations and having thoughts of suicide. The patient does seem to have some difficulty with her current medication regimen. She continues to endorse positive suicidal ideation during today's interview. For a more complete history of present illness, please refer to previous dictated notes. PAST PSYCHIATRIC HISTORY Reviewed, no changes. FAMILY HISTORY/SOCIAL HISTORY Reviewed, no changes. MEDICAL HISTORY Reviewed, no changes. MEDICATION HISTORY At the time of the patient's last discharge, her medications included Minipress, Ambien, Klonopin, Desyrel, Cogentin, Celexa, Neurontin, Protonix, Proventil, paliperidone, Valtrex, Flexeril, Lortab, Flonase, Tessalon Perles, Imitrex, Abilify. ALLERGIES Penicillin, amoxicillin, BuSpar, codeine, haloperidol, paroxetine, pregabalin, quetiapine. Unit #: [id number] #: [id number] Patient: JOSE KELLOGG MENTAL STATUS EXAM At this time, reveals the patient to be an obese disheveled white female appearing somewhat older than her stated age. She is in no apparent physical distress at time of examination. She is somewhat groggy but easily aroused. Speech is impoverished but generally relevant and coherent. There are no gross deficits in memory or cognition noted. Intelligence is judged to be in the low average range based on fund of knowledge. The patient's mood is dysphoric. Her affect flat. The patient continues to endorse positive suicidal ideation and also reports positive visual hallucinations. Her judgement and insight appear to be impaired. ASSETS AND LIABILITIES Patient's assets to be assessed. Liabilities, lack of resources. ADMITTING DIAGNOSES 1. Dysthymic disorder. 2. Mixed personality disorder with borderline and dependent traits. 3. HSV-2. 4. Gastroesophageal reflux disease. 5. Asthma. 6. Chronic pain. PSYCHIATRIC PLAN/TREATMENT GOALS The patient remains hospitalized for safety and stabilization. During her last hospitalization, this physician had become alarmed once again at the patient's creeping poly-pharmacy and it is again worth noting that the best this physician has ever since this patient was when she was on absolutely no medication whatsoever. Accordingly, we will undertake a medication washout, discontinuing Minipress, Ambien, Desyrel, Celexa, Neurontin and paliperidone. Cogentin will be left in place given concerns about ongoing extrapyramidal symptoms from the patient's Abilify shot and will reduce her Klonopin to 1 mg twice daily. Given the patient's propensity for acting out, she will remain on eye view precautions. ESTIMATED LENGTH OF STAY Five to seven days. Dictated by... Ammon Ruiz M.D. RANDELL/carmella TD: 08/14/2016 18:23 JOB #: [id number] Unit #: [id number] #: [id number] Patient: JOSE KELLOGG PSYCHIATRIC ASSESSMENT Page 1 of 1 X Ammon Ruiz MD X PSYCHIATRIC ASSESSMENT
--- NOTE | ~2016-08-13 | DS ---
Unit #: [id number] #: [id number] Patient: JOSE KELLOGG [id number] [place] [address] [id number] I MR#: [id number] NAME: JOSE KELLOGG ROOM: P255 Age: 45 Sex: F Admission Date: 08/13/2016 : 1970 Discharge Date: 08/16/2016 Attending Physician: Ammon Ruiz M.D. Primary Care Physician: David Tran M.D. DISCHARGE SUMMARY REASON FOR ADMISSION The patient is a 45-year-old white female admitted to the [address] [place] [address] unit reporting recurrence of visual hallucinations and suicidal thinking. HOSPITAL COURSE The patient was admitted to the [address] [place] [address] unit and placed on suicidal precautions. A decision was made on the part of this physician to discontinue previously prescribed medications as the patient has seemed to best with minimal psychotropic medication intervention. The patient agreed with this plan and was continued only on Klonopin 1 mg twice daily and Neurontin 400 mg three times daily. The patient reported that she felt "much clearer headed" on 08/16. On that date she requested discharge from the hospital stating that her uncle had and there was an emergency at home. She requested discharge and it was so ordered. FINAL DIAGNOSIS 1. Major depressive disorder recurrent, moderate. 2. Mixed personality disorder with dependent borderline DISPOSITION ON DISCHARGE The patient is discharged on the following medications Klonopin 1 mg twice daily for anxiety, Neurontin 400 mg three times daily for neuropathic pain. No dietary or physical restrictions were placed on the patient at the time of discharge. Followup up to take place through the auspices of community mental health resources. PROGNOSIS The patient's prognosis remains guarded. Dictated by... Ammon Ruiz M.D. CB/amara TD: 08/18/2016 21:33 JOB #: [id number] Unit #: [id number] #: [id number] Patient: JOSE KELLOGG DISCHARGE SUMMARY Page 1 of 1 X Ammon Ruiz MD X DISCHARGE SUMMARY
--- NOTE | ~2016-08-13 | CO ---
Unit #: [id number] #: [id number] Patient: JOSE KELLOGG [id number] [place] [address] [id number] MR#: [id number] NAME: JOSE KELLOGG ROOM: P255 Age: 45 Sex: F Admission Date: 08/13/2016 : 1970 Attending Physician: Ammon Ruiz M.D. Primary Care Physician: David Tran M.D. Consultation Date: 08/14/2016 CONSULTATION REPORT SUBJECTIVE Jose is a 45-year-old who had complained to nursing staff about a stuffy nose and "flu-like symptoms." She has had no increased temperatures and she denies any nausea vomiting, or diarrhea. She further denies generalized muscle aches and pains. We have been asked to assess and give recommendations. I just saw her for her admission H and P on 08/13/2016 and she had none of these complaints. OBJECTIVE GENERAL: Alert, well nourished, in no apparent distress. VITAL SIGNS: Blood pressure 120/70, heart rate 80, respirations 16, temperature 98.6. HEENT: Normocephalic. TMs shiny bilaterally. Oral and nasal passages clear. No nasal congestion noted. NECK: Supple without lymphadenopathy. CHEST: Lungs clear. Absolutely, no cough noted. When asked to cough, she gives a feeble attempt at a cough. ASSESSMENT Normal exam. PLAN No Rx. Dictated by... Kami Luo PRockyAGurmeet. for Kusum Meraz/david TD: 08/19/2016 01:17 JOB #: [id number] Unit #: [id number] #: [id number] Patient: JOSE KELLOGG CONSULTATION REPORT Page 1 of 1 X Kami Luo CONSULTATION REPORT
[2016-08-14 09:37] LABS: BASOPHIL# 0.1 X10e3 (0-0.3); BASOPHIL% 0.5 % (0-2.5); EOSINOPHIL# 0.2 X10e3 (0-0.7); EOSINOPHIL% 1.9 % (0.0-7.0); HEMATOCRIT 36.7 % (35.0-45.0); HEMOGLOBIN 12.6 gm/dL (12.0-16.0); LYMPHOCYTE# 2.5 X10e3 (1.0-3.5); LYMPHOCYTE% 24.3 % (17.0-45.0); MEAN CELL VOLUME 93.5 FL (83-96); MEAN CORPUSCULAR HGB CONC 34.2 g/dL (30-36); MEAN PLATELET VOLUME 9.1 FL (6.5-11.5); MONOCYTE# 0.6 X10e3 (0-1.0); MONOCYTE% 5.9 % (3.0-12.0); NEUTROPHIL# 6.9 X10e3 (1.5-7.1); NEUTROPHIL% 67.4 % (40-75); PLATELET COUNT 294 X10e3 (140-420); RED BLOOD COUNT 3.92 X10e (3.90-5.30); RED CELL DISTRIBUTION WIDTH 13.5 % (11.0-15.5); WHITE BLOOD COUNT 10.3 X10e3 (4.0-10.5)
[2016-08-14 09:55] LABS: DIFF IND NO
[2016-08-14 10:37] LABS: AMPHETAMINE NEG (NEG); BARBITURATES NEG (NEG); BENZODIAZEPINES POS (NEG); COCAINE NEG (NEG); MARIJUANA NEG (NEG); OPIATES POS (NEG); TRICYCLIC ANTIDEPRESSANTS POS (NEG); U METHADONE NEG (NEG)
[2016-08-14 10:56] LABS: ALBUMIN SERUM 3.6 g/dL (3.5-5.0); BILIRUBIN,TOTAL 0.6 mg/dL (0.2-2.0); BUN/CREATININE RATIO 15.71; CALCIUM SERUM 8.9 mg/dL (8.4-10.2); CREATININE SERUM 0.7 mg/dL (0.6-1.4); GLOM FILT RATE Estimated 104.6 mL/min (>60); POTASSIUM 3.9 mmol/L (3.5-5.1); PROTEIN TOTAL SERUM 6.4 g/dL (6.0-8.3)
[2016-08-14 12:34] LABS: URINE APPEARANCE CLEAR; URINE BILIRUBIN NEG (NEG); URINE BLOOD NEG (NEG); URINE COLOR YELLOW; URINE GLUCOSE NEG (NEG); URINE KETONE NEG (NEG); URINE LEUKOCYTE ESTERASE TRACE (NEG); URINE NITRATE NEG (NEG); URINE PROTEIN NEG (NEG); URINE SPECIFIC GRAVITY 1.022 (1.003-1.035)
[2016-08-14 12:36] LABS: URINE BACTERIA AUWI 2+ (NEGATIVE); URINE SQUAMOUS EPITHELIAL CELL OCC /[HPF]; UWBCS1 AUWI 0-2 (0-5)
[2016-08-14 12:45] LABS: URBCS1 AUWI NEG /[HPF] (0-2)
== END 2016-08-16 13:15 | disposition home or self-care (01) | DRG 881 ==
LOC: P2L 14:01
PROVIDERS: Specialist
DX: F34.1 Dysthymic disorder (principal); R45.851 Suicidal ideations; F60.89 Other specific personality disorders; F60.3 Borderline personality disorder; F60.7 Dependent personality disorder; B00.9 Herpesviral infection, unspecified; K21.9 Gastro-esophageal reflux disease without esophagitis; J45.909 Unspecified asthma, uncomplicated; G89.29 Other chronic pain
CPT/HCPCS: 80053; 80307; 81003; 84703; 85025